=== PATIENT | male | born 1975 | race Caucasian/White ===

== ENCOUNTER 2021-03-12 18:03 | Inpatient (IN) | payer BC, SELFPAY ==
[~2021-03-12] VITALS: Ht 185.4 cm; Wt 117.5 kg
[2021-03-12] MEDS ORDERED: DEXAMETHASONE SOD PHOSPHATE 4 MG/ML VIAL IVP ONE (18:15)
[2021-03-12 18:21] VITALS: BP_SYST 121
[2021-03-12 18:44] LABS: HEMOGLOBIN 13.5 g/dL (14.0-18.0); RED BLOOD CELL COUNT(AUTO) 4.22 MIL/uL (4.2-6.2); WHITE BLOOD COUNT (AUTO) 10.1 K/uL (4.8-10.8)
[2021-03-12 18:45] LABS: HEMATOCRIT 38.4 % (36-54); MEAN CORPUSCULAR HEMOGLOBIN 32 pg (27-31); MEAN CORPUSCULAR HGB CONC 35 % (32-36); MEAN CORPUSCULAR VOLUME 91 fL (79.0-98.0); PLATELET COUNT (AUTO) 328 K/uL (130-430); RED CELL DISTRIBUTION WIDTH 14.2 % (9.0-15.0)
[2021-03-12 18:46] LABS: BASOPHILS % (AUTO) 0.4 % (0.0-2.0); LYMPHOCYTES # (AUTO) 0.7 K/uL (1.0-5.5); LYMPHOCYTES % (AUTO) 7.1 % (20.5-51.5); MONOCYTES % (AUTO) 9.5 % (1.7-9.3); NEUTROPHILS # (AUTO) 8.4 K/uL (1.8-7.7)
[2021-03-12] MEDS ORDERED: DEXAMETHASONE SOD PHOSPHATE 10 MG/ML VIAL ONE (18:47)
[2021-03-12] MEDS ORDERED: DEXAMETHASONE SOD PHOSPHATE 4 MG/ML VIAL ONE (18:48)
[2021-03-12 18:55] LABS: CALCIUM 8.1 mg/dL (8.4-11.0); CREATININE 0.98 mg/dL (0.55-1.30); POTASSIUM 3.7 mmol/L (3.5-5.1)
[2021-03-12 19:02] LABS: ALBUMIN 2.9 g/dL (3.4-4.8); TOTAL BILIRUBIN 0.6 mg/dL (0.0-1.0)
[2021-03-12 19:41] LABS: C-REACTIVE PROTEIN QUANT 15.1 mg/dL (0-0.5)
[2021-03-12] MEDS ORDERED: cefTRIAXone 1 GM in D5W 50 ML IV ONE (19:45)
[2021-03-12] MEDS ORDERED: AZITHROMYCIN 500 MG in NS 250 ML IV ONE (19:45)
[2021-03-12] MEDS ORDERED: AZITHROMYCIN 500 MG/VIAL (ZITHROMAX) IV ONE (19:55)
[2021-03-12] MEDS ORDERED: cefTRIAXone 1 GM VIAL ONE (19:55)
[2021-03-12] MEDS ORDERED: MAGNESIUM OXIDE 400 MG TABLET PO ONE (21:45)
[2021-03-12] MEDS ORDERED: FAMOTIDINE 20 MG TABLET PO ONE (22:00)
[2021-03-12] MEDS ORDERED: ONDANSETRON HCL 4 MG/2 ML VIAL IVP PRN (22:00)
[2021-03-12] MEDS: ASCORBIC ACID 500 MG TABLET PO SCH (22:41)
[2021-03-12] MEDS: CHOLECALCIFEROL (VITAMIN D3) 2,000 UNIT TABLET PO SCH (22:41)
[2021-03-12] MEDS: ALBUTEROL MDI INHALATION 8 GM INH INH SCH (23:00)
[2021-03-12] MEDS ORDERED: ENOXAPARIN SODIUM 100 MG/ML SYRINGE SUBCUT ONE (23:00)
[2021-03-12 23:41] LABS: PROTHROMBIN TIME 10.4 SECS (9.5-12.5)
[2021-03-13] VITALS (15 sets, daily range): BP systolic 105–188
[2021-03-13] MEDS ORDERED: IPRATROPIUM/ALBUTEROL SULFATE 3 ML AMPUL.NEB (DUONEB) INH PRN (02:00)
[2021-03-13] MEDS: ALBUTEROL MDI INHALATION 8 GM INH INH SCH ×5 (03:00→23:17)
[2021-03-13 07:19] LABS: BASOPHILS % (AUTO) 0.1 % (0.0-2.0); HEMATOCRIT 37.9 % (36-54); HEMOGLOBIN 13.3 g/dL (14.0-18.0); LYMPHOCYTES # (AUTO) 0.5 K/uL (1.0-5.5); LYMPHOCYTES % (AUTO) 5.4 % (20.5-51.5); MEAN CORPUSCULAR HEMOGLOBIN 32 pg (27-31); MEAN CORPUSCULAR HGB CONC 35 % (32-36); MEAN CORPUSCULAR VOLUME 91 fL (79.0-98.0); MONOCYTES % (AUTO) 10.6 % (1.7-9.3); NEUTROPHILS % (AUTO) 83.9 % (40.0-70.0); PLATELET COUNT (AUTO) 357 K/uL (130-430); RED BLOOD CELL COUNT(AUTO) 4.19 MIL/uL (4.2-6.2); RED CELL DISTRIBUTION WIDTH 14.1 % (9.0-15.0); WHITE BLOOD COUNT (AUTO) 9.5 K/uL (4.8-10.8)
[2021-03-13 07:45] LABS: ALBUMIN 2.6 g/dL (3.4-4.8); CALCIUM 8.2 mg/dL (8.4-11.0); CREATININE 0.96 mg/dL (0.55-1.30); POTASSIUM 3.8 mmol/L (3.5-5.1); TOTAL BILIRUBIN 0.4 mg/dL (0.0-1.0)
[2021-03-13] MEDS ORDERED: IPRATROPIUM/ALBUTEROL SULFATE 3 ML AMPUL.NEB (DUONEB) ONE (08:16)
[2021-03-13] MEDS: CHOLECALCIFEROL (VITAMIN D3) 2,000 UNIT TABLET PO SCH (09:00)
[2021-03-13] MEDS: ENOXAPARIN SODIUM 100 MG/ML SYRINGE SUBCUT SCH ×2 (09:00→21:06)
[2021-03-13] MEDS: DEXAMETHASONE SOD PHOSPHATE 10 MG/ML VIAL IVP SCH (09:00)
[2021-03-13] MEDS: MAGNESIUM OXIDE 400 MG TABLET PO SCH ×2 (09:00→20:28)
[2021-03-13] MEDS: FAMOTIDINE 20 MG TABLET PO SCH ×2 (09:00→20:28)
[2021-03-13] MEDS: ASCORBIC ACID 500 MG TABLET PO SCH ×3 (09:00→20:22)
[2021-03-13] MEDS ORDERED: IVERMECTIN 3 MG TABLET PO ONE (14:00)
[2021-03-13] MEDS ORDERED: AZITHROMYCIN 500 MG in NS 250 ML IV SCH (20:00)
[2021-03-13] MEDS: DOXYCYCLINE HYCLATE 100 MG in D5W 100 ML IV SCH (20:22)
[2021-03-13] MEDS: cefTRIAXone 1 GM in D5W 50 ML IV SCH (20:27)
[2021-03-14] VITALS (24 sets, daily range): BP systolic 110–145
[2021-03-14] MEDS: ALBUTEROL MDI INHALATION 8 GM INH INH SCH ×3 (03:00→23:49)
[2021-03-14] MEDS: ACETAMINOPHEN 325 MG TABLET PO PRN (05:06)
[2021-03-14 06:17] LABS: HEMOGLOBIN 12.8 g/dL (14.0-18.0); MEAN CORPUSCULAR HEMOGLOBIN 32 pg (27-31); MEAN CORPUSCULAR HGB CONC 35 % (32-36); MEAN CORPUSCULAR VOLUME 91 fL (79.0-98.0); PLATELET COUNT (AUTO) 424 K/uL (130-430); RED BLOOD CELL COUNT(AUTO) 4.06 MIL/uL (4.2-6.2); WHITE BLOOD COUNT (AUTO) 16.6 K/uL (4.8-10.8)
[2021-03-14 06:20] LABS: CALCIUM 8.3 mg/dL (8.4-11.0); CREATININE 1.07 mg/dL (0.55-1.30); POTASSIUM 3.4 mmol/L (3.5-5.1)
[2021-03-14 06:21] LABS: PROTHROMBIN TIME 10.3 SECS (9.5-12.5)
[2021-03-14 06:26] LABS: ALBUMIN 2.5 g/dL (3.4-4.8); TOTAL BILIRUBIN 0.5 mg/dL (0.0-1.0)
[2021-03-14] MEDS: DOXYCYCLINE HYCLATE 100 MG in D5W 100 ML IV SCH ×2 (08:23→21:18)
[2021-03-14] MEDS: DEXAMETHASONE SOD PHOSPHATE 10 MG/ML VIAL IVP SCH (08:24)
[2021-03-14] MEDS: ASCORBIC ACID 500 MG TABLET PO SCH ×4 (08:24→21:00)
[2021-03-14] MEDS: FAMOTIDINE 20 MG TABLET PO SCH ×2 (08:25→20:07)
[2021-03-14] MEDS: MAGNESIUM OXIDE 400 MG TABLET PO SCH ×2 (08:25→20:07)
[2021-03-14] MEDS: CHOLECALCIFEROL (VITAMIN D3) 5,000 UNIT TABLET PO SCH (08:25)
[2021-03-14] MEDS: ENOXAPARIN SODIUM 100 MG/ML SYRINGE SUBCUT SCH ×2 (08:40→20:09)
[2021-03-14 10:00] LABS: BAND % (MANUAL) 4 % (0-6); BASOPHILS % (MANUAL) 0 % (0-2); EOSINOPHILS % (MANUAL) 0 % (0-7); LYMPHOCYTES % (MANUAL) 5 % (20-46); MONOCYTES % (MANUAL) 9 % (0-11)
[2021-03-14] MEDS ORDERED: POTASSIUM CHLORIDE 20 MEQ/PKT PACKET PO ONE (10:45)
[2021-03-14] MEDS ORDERED: POTASSIUM CHLORIDE 20 MEQ TAB.PRT.SR PO ONE (18:00)
[2021-03-14] MEDS: cefTRIAXone 1 GM in D5W 50 ML IV SCH (20:06)
[2021-03-15] VITALS (24 sets, daily range): BP systolic 112–157
[2021-03-15] MEDS: ALBUTEROL MDI INHALATION 8 GM INH INH SCH ×6 (03:00→23:30)
[2021-03-15 06:28] LABS: BASOPHILS % (AUTO) 0.2 % (0.0-2.0); EOSINOPHILS % (AUTO) 0.2 % (0.0-4.0); HEMATOCRIT 36.7 % (36-54); HEMOGLOBIN 12.7 g/dL (14.0-18.0); LYMPHOCYTES # (AUTO) 1.6 K/uL (1.0-5.5); LYMPHOCYTES % (AUTO) 9.3 % (20.5-51.5); MEAN CORPUSCULAR HEMOGLOBIN 32 pg (27-31); MEAN CORPUSCULAR HGB CONC 35 % (32-36); MEAN CORPUSCULAR VOLUME 92 fL (79.0-98.0); MONOCYTES # (AUTO) 1.8 K/uL (0.0-1.0); MONOCYTES % (AUTO) 10.5 % (1.7-9.3); NEUTROPHILS % (AUTO) 79.8 % (40.0-70.0); PLATELET COUNT (AUTO) 450 K/uL (130-430); RED BLOOD CELL COUNT(AUTO) 3.97 MIL/uL (4.2-6.2); RED CELL DISTRIBUTION WIDTH 14.5 % (9.0-15.0); WHITE BLOOD COUNT (AUTO) 17.5 K/uL (4.8-10.8)
[2021-03-15 06:38] LABS: ALBUMIN 2.4 g/dL (3.4-4.8); CALCIUM 8.4 mg/dL (8.4-11.0); CREATININE 0.96 mg/dL (0.55-1.30); TOTAL BILIRUBIN 0.5 mg/dL (0.0-1.0)
[2021-03-15] MEDS: DEXAMETHASONE SOD PHOSPHATE 10 MG/ML VIAL IVP SCH (08:19)
[2021-03-15] MEDS: ASCORBIC ACID 500 MG TABLET PO SCH ×2 (08:20→22:00)
[2021-03-15] MEDS: FAMOTIDINE 20 MG TABLET PO SCH ×2 (08:20→22:00)
[2021-03-15] MEDS: POTASSIUM CHLORIDE 20 MEQ TAB.PRT.SR PO SCH ×2 (08:21→22:00)
[2021-03-15] MEDS: CHOLECALCIFEROL (VITAMIN D3) 5,000 UNIT TABLET PO SCH (08:21)
[2021-03-15] MEDS: MAGNESIUM OXIDE 400 MG TABLET PO SCH ×2 (08:21→22:00)
[2021-03-15] MEDS: ENOXAPARIN SODIUM 100 MG/ML SYRINGE SUBCUT SCH ×2 (08:22→22:02)
[2021-03-15] MEDS: DOXYCYCLINE HYCLATE 100 MG in D5W 100 ML IV SCH ×2 (08:23→22:00)
[2021-03-15] MEDS: ACETAMINOPHEN 325 MG TABLET PO PRN (09:42)
[2021-03-15] MEDS: cefTRIAXone 1 GM in D5W 50 ML IV SCH (20:00)
[2021-03-16] VITALS (21 sets, daily range): BP systolic 113–148
[2021-03-16] MEDS: ALBUTEROL MDI INHALATION 8 GM INH INH SCH ×6 (03:50→23:02)
[2021-03-16 06:40] LABS: BASOPHILS % (AUTO) 0.2 % (0.0-2.0); EOSINOPHILS # (AUTO) 0.1 K/uL (0.0-0.4); EOSINOPHILS % (AUTO) 0.7 % (0.0-4.0); HEMATOCRIT 35.8 % (36-54); HEMOGLOBIN 12.3 g/dL (14.0-18.0); LYMPHOCYTES # (AUTO) 1.8 K/uL (1.0-5.5); MEAN CORPUSCULAR HEMOGLOBIN 32 pg (27-31); MEAN CORPUSCULAR HGB CONC 34 % (32-36); MEAN CORPUSCULAR VOLUME 93 fL (79.0-98.0); MONOCYTES # (AUTO) 1.7 K/uL (0.0-1.0); MONOCYTES % (AUTO) 10.8 % (1.7-9.3); NEUTROPHILS # (AUTO) 12.3 K/uL (1.8-7.7); NEUTROPHILS % (AUTO) 77.3 % (40.0-70.0); PLATELET COUNT (AUTO) 481 K/uL (130-430); RED BLOOD CELL COUNT(AUTO) 3.86 MIL/uL (4.2-6.2); WHITE BLOOD COUNT (AUTO) 15.9 K/uL (4.8-10.8)
[2021-03-16 06:55] LABS: ALBUMIN 2.3 g/dL (3.4-4.8); CREATININE 1.16 mg/dL (0.55-1.30); POTASSIUM 4.3 mmol/L (3.5-5.1); TOTAL BILIRUBIN 0.5 mg/dL (0.0-1.0)
[2021-03-16 07:32] LABS: C-REACTIVE PROTEIN QUANT 6.6 mg/dL (0-0.5); CALCIUM 8.1 mg/dL (8.4-11.0)
[2021-03-16] MEDS: CHOLECALCIFEROL (VITAMIN D3) 5,000 UNIT TABLET PO SCH (08:52)
[2021-03-16] MEDS: DOXYCYCLINE HYCLATE 100 MG in D5W 100 ML IV SCH ×2 (08:52→21:48)
[2021-03-16] MEDS: FAMOTIDINE 20 MG TABLET PO SCH ×2 (08:52→21:48)
[2021-03-16] MEDS: DEXAMETHASONE SOD PHOSPHATE 10 MG/ML VIAL IVP SCH (08:53)
[2021-03-16] MEDS: ASCORBIC ACID 500 MG TABLET PO SCH ×2 (08:53→21:48)
[2021-03-16] MEDS: MAGNESIUM OXIDE 400 MG TABLET PO SCH ×2 (08:53→21:48)
[2021-03-16] MEDS: POTASSIUM CHLORIDE 20 MEQ TAB.PRT.SR PO SCH ×2 (08:53→21:48)
[2021-03-16] MEDS: ENOXAPARIN SODIUM 100 MG/ML SYRINGE SUBCUT SCH ×2 (08:54→21:50)
[2021-03-16] MEDS: cefTRIAXone 1 GM in D5W 50 ML IV SCH (20:16)
[2021-03-16] MEDS ORDERED: FAMO20TA8 PO (23:58)
[2021-03-16] MEDS ORDERED: ASC500 PO (23:58)
[2021-03-16] MEDS ORDERED: Zinc Sulfate PO (23:58)
[2021-03-16] MEDS ORDERED: ALBMDI INH (23:58)
[2021-03-16] MEDS ORDERED: DOXY75CA4 PO (23:58)
[2021-03-16] MEDS ORDERED: CHOL500013 PO (23:58)
[2021-03-16] MEDS ORDERED: APIX2.5T PO (23:58)
[2021-03-17] MEDS ORDERED: DEC4 PO (00:03)
[2021-03-17 00:20] VITALS: BP_SYST 135
[2021-03-17] MEDS: ALBUTEROL MDI INHALATION 8 GM INH INH SCH ×4 (03:00→15:27)
[2021-03-17 08:00] VITALS: BP_SYST 133
[2021-03-17] MEDS ORDERED: IVERMECTIN 3 MG TABLET PO ONE (08:00)
[2021-03-17] MEDS: FAMOTIDINE 20 MG TABLET PO SCH (08:14)
[2021-03-17] MEDS: MAGNESIUM OXIDE 400 MG TABLET PO SCH (08:14)
[2021-03-17] MEDS: CHOLECALCIFEROL (VITAMIN D3) 5,000 UNIT TABLET PO SCH (08:14)
[2021-03-17] MEDS: ASCORBIC ACID 500 MG TABLET PO SCH (08:14)
[2021-03-17] MEDS: DOXYCYCLINE HYCLATE 100 MG in D5W 100 ML IV SCH (08:48)
[2021-03-17] MEDS: DEXAMETHASONE SOD PHOSPHATE 10 MG/ML VIAL IVP SCH (08:48)
[2021-03-17] MEDS ORDERED: APIXABAN 2.5 MG TABLET PO SCH (09:00)
[2021-03-17 12:00] VITALS: BP_SYST 129
[2021-03-17 15:05] VITALS: BP_SYST 122
[2021-03-17 15:37] VITALS: BP_SYST 122
[2021-03-17 16:16] VITALS: BP_SYST 126
== END 2021-03-17 16:30 | disposition home or self-care (01) | DRG 871 ==
LOC: SED 18:03 → STU 19:42 → SIC 03-13 11:04 → STU 03-16 17:31
PROVIDERS: ADMIT Internal Medicine; ATTEND Internal Medicine
PROC: 5A0935A Assistance with Respiratory Ventilation, Less than 24 Consecutive Hours, High Flow/Velocity Cannula (ICD-10-PCS; principal; 2021-03-13)
PROC: 5A0935A Assistance with Respiratory Ventilation, Less than 24 Consecutive Hours, High Flow/Velocity Cannula (ICD-10-PCS; 2021-03-14)
PROC: 5A0935A Assistance with Respiratory Ventilation, Less than 24 Consecutive Hours, High Flow/Velocity Cannula (ICD-10-PCS; 2021-03-15)
PROC: XW033E5 Introduction of Remdesivir Anti-infective into Peripheral Vein, Percutaneous Approach, New Technology Group 5 (ICD-10-PCS; 2021-03-15)
DX: A41.9 Sepsis, unspecified organism (principal); U07.1 COVID-19; J12.82 Pneumonia due to coronavirus disease 2019; J96.01 Acute respiratory failure with hypoxia; E44.0 Moderate protein-calorie malnutrition; D64.9 Anemia, unspecified; E66.9 Obesity, unspecified; E87.6 Hypokalemia; D89.839 Cytokine release syndrome, grade unspecified; Z79.51 Long term (current) use of inhaled steroids; Z68.34 Body mass index [BMI] 34.0-34.9, adult; Z79.899 Other long term (current) drug therapy
CPT/HCPCS: 36415; 71045; 80053; 82728; 83605; 83615; 83880; 84484; 85007; 85025; 85027; 85379; 85384; 85610-TC; 85730-TC; 86140; 86710; 87040-TC; 93005; 94640; 96365; 96368; 96372; 99285; G0378; J0456; J0696; J1100; J1650; J2405; J3490; J7050; J7060; U0003